=== PATIENT | male | born 1990 | race Caucasian/White ===

== ENCOUNTER 2017-05-01 10:33 | Emergency (ER) | payer OTHER ==
[~2017-05-01] VITALS: Ht 172.7 cm; Wt 75.0 kg
[~2017-05-01 10:33] MED LIST: AUGMENTIN500 MG PO; CLARITIN10 M3 PO; CLONIDINE HCL0.1 MG PO; FLONASE16 G1 BOTH NARES; TRAZODONE HCL50 MG PO
[2017-05-01] MEDS ORDERED: TYLENOL WITH C1 EACH PO (12:37)
[2017-05-01 12:55] VITALS: BP 144/99
== END 2017-05-01 12:56 | disposition home or self-care (01) ==
LOC: EME 10:33
DX: S50.01XA Contusion of right elbow, initial encounter (principal); W10.9XXA Fall (on) (from) unspecified stairs and steps, initial encounter; Y92.009 Unspecified place in unspecified non-institutional (private) residence as the place of occurrence of the external cause; Z72.0 Tobacco use
CPT/HCPCS: 73080; 99281; 99283